=== PATIENT | female | born 1980 | race Caucasian/White ===

== ENCOUNTER 2024-12-04 01:12 | Inpatient (IN) | payer MEDICAID ==
[~2024-12-04] VITALS: Ht 152.4 cm; Wt 73.0 kg
[2024-12-04] VITALS (7 sets, daily range): BP systolic 97–119; BP diastolic 42–55; PULSE 64–71; RESP 16–18; TEMP 97.6–97.9; O2SAT 98–99
--- NOTE | 2024-12-04 02:00 | RADIOLOGY REPORT ---
CHEST RADIOGRAPH Indication: Weakness Technique: 1 view Comparison: None FINDINGS: Lines and Tubes: None Lungs/Pleura: Diffuse [id number]-left interstitial opacities. No evidence of pleural abnormality or focal consolidation. Cardiomediastinum: Unremarkable. Other: No acute osseous abnormality. IMPRESSION: 1. Right worse than left interstitial opacities suggesting edema or atypical infection.
--- NOTE | 2024-12-04 02:04 | Physician Documentation ---
History of Present Illness General Chief Complaint: See Chief Complaint Stated Complaint: MULTIPLE COMPLAINTS Time Seen by MD: 01:15 History of Present Illness Initial Comments History, review of systems, physical examination are limited secondary to patient's clinical condition. This is a 44-year-old female transferred to us from [facility] for higher level of care and GI consultation. She has a known history of liver disease. She is a 11 month sober from alcoholic consumption. She is currently on a t ransplant list. She has a known history of end-stage liver disease, congestive heart failure, hypotension, previous polysubstance use, previous alcohol abuse, but presented for evaluation of dyspnea and lightheadedness. She recently has been treated for a GI bleed secondary to variceal bleed, she was banded at a [facility] and subsequently discharged. Today she reports intermittent blood in stool, reports generalized weakness, nausea. She is also confused according to outside facility. At the outside facility she also reported a various pains, syncope, head strike, neck pain, low back pain, and right foot pain. At the time of my examination she complains of feeling confused and reports generalized pain and aches and weakness. Record reviewed. Her blood pressure at the outside facility was borderline at 1 0 6/50, had several episodes of hypotension. She is slightly tachypneic but did not require supplemental oxygen. She was noted to be markedly anemic on presentation with a hemoglobin of 5.9. She received transfusion of 2 units. She is also leukopenic with a white count of 0.7. She had 3-5% bands. Her ANC is 0.34. Platelets are decreased at 39. Her INR is 1.8. Tox screen was not negative. UA is nondiagnostic for UTI. Her metabolic panel shows normal sodium. Creatinine slightly elevated 1.18. Albumin is low at 1.8. Ammonia is elevated at 76. CK was normal. She had imaging of C-spine which showed no acute fracture. She had CT of her head and lumbar spine. CT head shows no acute hemorrhage. CT L-spine shows no acute fracture. X-ray of the right foot shows no fracture. Portable chest x- ray shows no acute cardiopulmonary disease. Medication Reconciliation Allergies: Coded Allergies: No Known Allergies (Unverified , 12/04/24) Review of Systems ROS Limited as above Physical Exam Physical Exam Vital Signs: Temperature: 99.2, Source: Oral, Heart Rate: 70, Respiratory Rate: 15, BP: 95/50, Pulse Oximetry: 95, Weight: 73.000 Physical Exam GENERAL: Awake, confused, no apparent distress, non-toxic appearing, answers questions to the best of her ability but in the limited fashion, follows commands appropriately. Examined immediately upon arrival in bed 10. HEENT: Atraumatic, normocephalic, pupils equal, extraocular muscles intact, sclerae anicteric, mucus membranes moist, oropharynx is clear, no stridor. NECK: supple, full active range of motion, trachea midline, no thyromegaly, no lymphadenopathy, no JVD. CARDIOVASCULAR: regular rate/rhythm, no murmurs/gallops/rubs, Pulses are 2+ in all extremities and symmetric. Capillary refill less than 2 seconds. PULMONARY: Nonlabored, good air movement ,no respiratory distress, speaking in full sentences, clear to auscultation bilaterally, no wheezing, no ronchi, no ra les, no accessory muscle use. GASTROINTESTINAL: Soft, non-tender, non-distended, normal active bowel sounds, no organomegaly, no pulsatile masses, no CVA tenderness. NEUROLOGIC: Lucid with normal mental status. Normal facial symmetry. Moves all extremities symmetrically and with purpose. No truncal ataxia. Speech is fluid without evidence of dysarthria or aphasia, no focal deficits appreciated. MUSCULOSKELETAL: There is full range of motion of all extremities. There is no joint pain or joint swelling or joint erythema. There is no muscle pain or tenderness or swelling. EXTREMITIES: warm, well-perfused, no cyanosis, no clubbing, no edema, no acute deformities. Skin: warm, dry, no rashes or lesions, no jaundice, no petechiae orpurpura. No ecchymosis. PSYCHIATRIC: Unable to reliably assess Progress Results/Orders Results/Orders Orders - JEROD GRECO DO Electrocardiogram (12/04/24 01:19) Cbc/Diff (12/04/24 01:19) Culture Blood (12/04/24 01:19) Chest,Single View (12/04/24 01:19) Monitor (12/04/24 01:19) Saline Lock (12/04/24:19) Hs Troponin I W Calculations (9/13/25 01:19) Hs Troponin I W Calculations (12/04/24 03:19) Straight Cath For Urine Sample (12/04/24 01:19) Man Diff (12/04/24 01:56) Pathology Review (12/04/24 01:56) Completed Orders - JEROD GRECO DO Type And Screen (12/04/24 01:19) Lipase (12/04/24 01:19) Pt Inr (12/04/24 01:19) PTT (12/04/24 01:19) Chest,Single View (12/04/24 01:19) PBNP (12/04/24 01:19) MG (12/04/24 01:19) Normal Saline 1000ml (0.9% Sodium Chlori (12/04/24 01:20) CMP (12/04/24 01:19) Lacticsepsis (12/04/24 01:19) Ammonia (12/04/24 01:19) Calcium Gluc 1gm/50ml Nacl,Iso (Calcium (12/04/24 01:20) Piperacillin/Tazo 4.5gm/100ml (Zosyn 4.5 (12/04/24 02:05) Ua W/Microscopic, Cult If Ind (12/04/24 02:50) Piperacillin/Tazo 4.5gm/100ml (Zosyn 4.5 (12/04/24 03:21) Medications Received in ER Medications (Trade) Dose Ordered Sig/Evon Route PRN Reason Start Time Stop Time Status Last Admin Dose Admin (0.9% sodium chloride (NS) 1000ml IV soln) 500 ml ONCE ONCE IVB 12/04/24 01:20 12/04/24 01:27 DC 12/04/24 02:13 500 ML Calcium Gluconate 50 ml @ 50 mls/hr ONCE ONCE IV 12/04/24 01:20 12/04/24 02:19 DC 12/04/24 02:08 50 MLS/HR Piperacillin/ Tazobactam/ Dextrose 100 ml @ 100 mls/hr ONCE ONCE IV 12/04/24 02:05 12/04/24 03:04 DC 12/04/24 03:32 100 MLS/HR Vital Signs 12/04/24 12/04/24 12/04/24 01:15 02:58 04:22 Temp 99.2 Pulse 70 62 Resp 15 18 16 B/P (MAP) 95/50 101/49 (66) Pulse Ox 95 95 Laboratory Tests Test 12/04/24 01:56 12/04/24 02:50 White Blood Count 0.9 *L Red Blood Count 2.81 L Hemoglobin 7.8 L Hematocrit 24.0 L Mean Corpuscular Volume 85.2 Mean Corpuscular Hemoglobin 27.9 Mean Corpuscular Hemoglobin Concent 32.7 L Red Cell Distribution Width 18.8 H Platelet Count 31 *L Mean Platelet Volume 9.0 Neutrophils (%) (Auto) 64.1 Lymphocytes (%) (Auto) 23.0 Monocytes (%) (Auto) 11.7 Eosinophils (%) (Auto) 0.8 Basophils (%) (Auto) 0.4 Neutrophils # (Auto) 0.6 L Lymphocytes # (Auto) 0.2 L Monocytes # (Auto) 0.1 Eosinophils # (Auto) 0.0 Basophils # (Auto) 0.0 CBC Comment Differential Total Cells Counted 100 Neutrophils % (Manual) 62.0 Lymphocytes % (Manual) 26.0 Monocytes % (Manual) 12.0 Platelet Estimate Decreased Red Blood Cell Morphology Perf Hypochromasia 1+ Basophilic Stippling Anisocytosis 2+ Microcytosis 1+ Prothrombin Time 14.6 H INR International Normalized Ratio 1.5 Activated Partial Thromboplast Time 31 Coagulation Comments Sodium Level 138 Potassium Level 4.9 Chloride Level 106 Carbon Dioxide Level 28.1 Anion Gap 4 L Blood Urea Nitrogen 21 H Creatinine 1.15 H Estimated GFR/1.73 m2 51 BUN/Creatinine Ratio 18.3 Glucose Level 100 Lactic Acid Level 1.2 Calcium Level 8.2 L Magnesium Level 1.7 Total Bilirubin 4.1 H Aspartate Amino Transf (AST/SGOT) 38 H Alanine Aminotransferase (ALT/SGPT) 9 L Alkaline Phosphatase 135 H Ammonia 112 *H Pro-B-Type Natriuretic Peptide 581 H Total Protein 6.2 L Albumin 1.9 L Globulin 4.3 Albumin/Globulin Ratio 0.4 L Lipase 52 Chemistry Comments Urine Specimen Description Non-specified Urine Color Yellow Urine Clarity Clear Urine pH 7.0 Urine Specific [place] <=1.005 Urine Protein Negative Urine Glucose (UA) Negative Urine Ketones Negative Urine Occult Blood Small Urine Nitrite Negative Urine Bilirubin Negative Urine Urobilinogen 2.0 H Urine Leukocyte Esterase Negative Urine RBC 3-10 Urine WBC None seen Urine Squamous Epithelial Cells Few Urine Bacteria Few Urine Culture Indicated Not ind Volume Urine Centrifuged 10 ml Urine Comment Microbiology Date/Time Source Procedure Growth Status 12/04/24 01:56 Blood Hand Right Blood Culture - Preliminary NEGATIVE (LESS THAN 24 HOURS) Resulted Medical Decision Making Findings Facility Status: ED Holds, RME process The plan was discussed with the patient, who demonstrates clear understanding of the plan and is in agreement with the plan unless otherwise noted in the chart. All questions have been answered, all concerns were addressed unless otherwise documented. I was available throughout their ED stay for frequent reassessment and questions. Differential Diagnoses (considered and possible or likely): [Upper GI bleed versus lower GI bleed versus variceal bleed, critical anemia requiring transfusion, hepatic encephalopathy, less likely dehydration electrolyte derangement] ??Differential Diagnoses (considered and unlikely, not requiring evaluation currently): [Trauma was already ruled out of the outside facility] MDM Data Please see [facility] for the following: Independent Historians and external Records Review. Historian: Limited information from patient secondary to her clinical condition Independent Historians: ?[Record review] Medication Management: [Reviewed medication list] Social History and determinants: [Reviewed] Please see the body of the note for the following: Any independent interpretations of ECG, imaging studies. All vitals signs/haemodynamics, ordered tests were independently reviewed and interpreted by myself. Nursing triage complaint and vitals reviewed, additional nursing notes were reviewed as available and I agree unless otherwise noted or documented in contradiction in the chart Vital Signs: Independently reviewed Labs: Independently interpreted Imaging: Independently interpreted Old Medical Records: Independently reviewed, see [facility] for relevant summary and information Pulse Oximetry: [96%] interpreted as [normal on room air] by me [Loading Shovel Oiler: [Regular Rate, Regular rhythm, no ectopy, NSR] reviewed and interpreted by me] Additionally notably showing: [Hemodynamics reviewed. The patient isn't febrile, not tachycardic, no evidence of hypotension here, blood pressure actually improved with fluids. Laboratory studies reviewed. A persistent leukopenia noted. Thrombocytopenia noted. Anemia present, currently not requiring transfusion. No significant neutrophilic predominance. Coagulation panel shows improving the INR to 1.5. Chemistry is notable for stable kidney disease. Ammonia is elevated at 112. BNP is elevated also concerning for some hepatic congestion and CHF. Lipase is normal. UA is nondiagnostic for UTI.] Tests considered but not ordered include: [] Social Determinants of Health Impact: Patient was evaluated in [facility], or [facility] [place] to healthcare due to below par ratio of patient to medical providers. [] Comorbid Conditions Impacting Present Evaluation and Care/Treatment: [Multiple, see list] Management Discussions with other Healthcare Providers: [Hospitalist regarding admission] Treatment and Disposition Medication Management (Given or considered): []. See EMR for details Consideration for Hospitalization/Escalation/Deescalation of Care: Admission for observation has been considered, and appears to be necessary for further management of her altered mental status, GI bleed. ?ED Course:?[No clinical deterioration. No evidence of hematemesis here. Does not require pressors.] ?Shared decision making:?[] Code status:?FULL Please see the full Electronic Medical Record for full details of nursing documentation, medications list, other records of complete past medical history and conditions, vital signs, laboratory studies, and any radiologic study interpretations by radiologists. Portions of this note were completed using [employer] dictation software and as a result there may exist minor errors in spelling. I have reviewed elements of past family and social history and agree as included in note. Departure Disposition: 09 ADMITTED INPATIENT Impression: Primary Impression: Gastrointestinal bleed Additional Impressions: Anemia requiring transfusions Acute kidney injury Leukopenia Thrombocytopenia Transient hypotension Condition: Improved Referrals: NO PRIMARY CARE PROVIDER (PCP) Signature Scribe Signature: No scribe Attestation: Date: Dec 04, 2024 Time: 02:06 This note accurately reflects clinical decisions, work performed by myself, Jerod Greco, JEROD ORTEGA DO Dec 04, 2024 02:04
[2024-12-04] MEDS: CALCIUM GLUC 1gm/50ml NACL,iso 50 ML IV ONE (02:08)
[2024-12-04] MEDS: normal saline 1000ML IV soln IVB ONE (02:13)
[2024-12-04 02:25] LABS: APTT 31 SECONDS (22-32); INR 1.5 INR
[2024-12-04 02:27] LABS: CREATININE 1.15 MG/DL (0.40-0.90); TOTAL CARBON DIOXIDE 28.1 MMOL/L (24-32); eCRCL 47 ML/MIN; eGFR 51 ML/MIN
[2024-12-04 02:32] LABS: LACTIC SEPSIS 1.2 MMOL/L (0.4-2.0)
[2024-12-04 02:33] LABS: PRO BRAIN NATRIURETIC PEPTIDE 581 PG/ML (0-125)
[2024-12-04 02:36] LABS: MEAN PLATELET VOLUME 9.0 FL (7.4-10.4); RED CELL DISTRIBUTION WIDTH 18.8 % (11.5-14.5)
[2024-12-04 03:00] LABS: LEUKOCYTE ESTERASE ,URINE NEGATIVE (Neg); NITRITES, URINE NEGATIVE (Neg); OCCULT BLOOD,URINE SMALL (Neg)
[2024-12-04 03:10] LABS: LYMPHOCYTES % (MANUAL) 26.0 % (21-51); MONOCYTES % (MANUAL) 12.0 % (2-12); NEUTROPHILS % (MANUAL) 62.0 % (42-75); PLATELET ESTIMATE DECREASED
[2024-12-04 03:12] LABS: UA COLLECTION TYPE NON-SPECIFIED
[2024-12-04 03:30] LABS: SQUAMOUS EPITHELIAL CELL,UR FEW /LPF (FEW)
[2024-12-04] MEDS: piperacillin/tazo 4.5gm/100ml 100 ML IV ONE ×2 (03:32→03:35)
[2024-12-04] MEDS ORDERED: magnesium Cl slow-release 64mg tablet PO PRN (05:25)
[2024-12-04] MEDS ORDERED: potassium Cl 40MEQ/1/2NS 520ml 520 ML IV PRN (05:25)
[2024-12-04] MEDS ORDERED: magnesium sulf-water 4G/100mL 100 ML IV PRN (05:25)
[2024-12-04] MEDS ORDERED: mag hydrox/Alum hydrox/simeth 30ml oral suspension PO PRN (05:25)
[2024-12-04] MEDS ORDERED: magnesium sulf-water 2g/50mL 50 ML IV PRN (05:25)
[2024-12-04] MEDS: PERFLUTREN PROTEIN-A MICROSPHR (Optison) 0.22 MG/ML 3ML VIAL IV ONE (05:25)
[2024-12-04] MEDS ORDERED: potassium Cl 20 mEq SR tablet PO PRN ×2 (05:25)
[2024-12-04] MEDS ORDERED: magnesium hydroxide 30ml (MOM) UD suspension PO PRN (05:25)
[2024-12-04] MEDS: ondansetron/PF 4mg/2ml inj IM ONE (05:31)
[2024-12-04] MEDS: ondansetron/PF 4mg/2ml inj IV ONE (05:35)
--- NOTE | 2024-12-04 06:08 | HISTORY AND PHYSICAL-Residence ---
History & Physical Providers to CC Resident Creating Document: LETTY WALDROP, RES ~ History of Present Illness Reason for Admit\Complaint: GI bleed History of Present Illness The patient is a 44-year-old female with past medical history of end-stage liver disease on liver transplant list, hypertension, congestive heart failure, history of polysubstance use, was transferred from [facility] for the management of GI bleed. The patient is encephalopathic and has waxing and waning mentation. History is thus limited. Patient recently was treated for GI bleed with banding at [facility]. She now comes with dyspnea and lightheadedness. She has also found blood in her stool. Unsure about hematemesis. She also fell multiple times and found herself confused. She has generalized body aches. Patient reported compliance with all of her medications. Patient also complains of abdominal pain. She has ascites and undergoes paracentesis periodically. Patient has been sober for the last one year. Allergies: Coded Allergies: No Known Allergies (Unverified , 12/04/24) Past Medical History Past Medical History End-stage liver disease secondary to alcoholic cirrhosis Pancytopenia Ascites Hepatitis-C History of substance use disorder PTSD CHF Past Surgical History Surgical History Comment Variceal banding at [facility] Past Social History Social History Comment Patient lives with her mother at [place]. Ambulates independently without assistance. PCP - Dr. 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 Does not follow up with any other specialists. Substance use history: Patient was a heavy alcoholic. Started drinking after her father killed himself during her teenage years. Quit one year ago. Quit smoking one year ago. Vapes currently. History of IV drug abuse present including methamphetamines, cocaine, heroin. Quit everything almost six years ago. ROS ROS Review of systems limited as the patient is encephalopathic. Exam Vitals: Vital Signs Date Time Temp Pulse Resp B/P (MAP) Pulse Ox O2 Delivery O2 Flow Rate FiO2 12/04/24 05:38 98.9 59 12 99/45 (63) 96 General: Adult female, waxing and waning mentation, not in acute distress Head: Normocephalic with an atraumatic Eyes: Pupils- 3mm, reacting to light, conjunctiva- pale Nose and throat: No polyps, septum- normal, no mucosal ulcers, dry mucosal membrane Neck: Supple, no lymphadenopathy, no carotid bruit Respiratory: No use of accessory muscles of respiration, Bilateral coarse breath sounds heard Cardiac: S1-S2 heard, rhythm regular, no gallop/murmur Abdomen: distended, diffuse tenderness present, bowel sounds - heard Extremities: no clubbing, no pedal edema, no deformities, peripheral pulses - 2+ Skin: warm and dry, no rash, no purpura Neuro: Not cooperative for neurological exam Diagnostic Data Last Recorded Lab Results: 12/04/246 12/04/24 0156 Diagnostic Data: Laboratory Tests Test 12/04/24 01:56 Prothrombin Time 14.6 SECONDS (9.0-12.0) H INR International Normalized Ratio 1.5 INR Activated Partial Thromboplast Time 31 SECONDS (22-32) Coagulation Comments Advance Care Planning Advanced Care plannin - 30 Minutes (Full code) Additional Plan The patient is a 44-year-old female with past medical history of end-stage renal disease on liver transplant list, history of heavy alcohol use, history of substance use disorder including IV drugs, pancytopenia, CHF, was transferred from [facility] for the management of GI bleed. Plan: Decompensated alcoholic liver cirrhosis Acute on chronic hepatic encephalopathy Upper GI bleed secondary to esophageal varices Severe symptomatic anemia Total bilirubin 4.1, AST 38, ALT nine, ALP 135. Platelets 59617. INR 1.5. Albumin 1.9. Ammonia 112. HB at the other hospital was 5.9. Patient received 2 units of PRBC at the other hospital. Current hemoglobin 7.8. Patient recently underwent variceal banding at [facility]. GI on-call, Dr. Rosales consulted. Appreciate recommendations. Started the patient on pantoprazole drip, octreotide drip, lactulose t.i.d. to titrate 3-4 bowel movements per day. Continue rifaximin after medication reconciliation is done. Patient is currently on liver transplant list. Follow up with faculty dean outpatient. Pancytopenia Neutropenia WBC 0.9, HB 7.8, platelets [id number]. Currently not febrile. Although, patient reported few subjective fevers over the past few weeks. Tender ascites Possible spontaneous bacterial peritonitis Patient clinically has ascites. Follow up with [facility] abdomen. Empirically started her on IV ceftriaxone 2 g daily. Diagnostic and therapeutic paracentesis. Multiple mechanical falls CT C-spine showed no acute fractures. CT head showed no acute intracranial abnormalities. X-ray right foot showed no acute fractures. X-ray lumbar spine showed no acute abnormality. Patient complains of generalized body aches. Follow up with creatinine kinase. Consider IV albumin if patient needs fluids. Acute hypoxemic respiratory failure Possible aspiration pneumonia X-ray shows right worse than left interstitial opacities. Started the patient on IV ceftriaxone and azithromycin. History of substance use disorder Currently sober. Congestive heart failure, likely not in exacerbation Follow up with the echocardiogram. ProBNP in 500s. PTSD Continue home medications after medication reconciliation is done. Code Status: Full code DVT Prophylaxis: SCDs Analgesia/Sedation: Morphine Lines/Tubes: PIV GI Prophylaxis: Protonix Nutrition: NPO PT: Ordered Prognosis: Guarded Disposition: We will admit the patient into [facility]. NPO for possible endoscopy. Agree with above. WOuld change abx to vanco/zosyn and obtain doppler RLE as well Plan reviewed with bedside team. Patient seen through remote audiovisual assessment through HIPAA compliant setup. All labs, flowsheets, and images reviewed Cumulative nonprocedural care time spent in directed patient care = 30 min Letty Waldrop MD Internal Medicine Resident PGY-2 Date of Service: Dec 04, 2024 Billing Provider: NERY ADAMS MD, SOWMYA MANJARI, RES Dec 04, 2024 06:08 NERY ADAMS MD Dec 04, 2024 07:11
[2024-12-04] MEDS ORDERED: BUPR1FIL7 SL (06:34)
[2024-12-04] MEDS ORDERED: LEVO88TA2 PO (06:34)
[2024-12-04] MEDS ORDERED: SPIR25TA5 PO (06:34)
[2024-12-04] MEDS ORDERED: RIFA200T2 PO (06:34)
[2024-12-04] MEDS ORDERED: FURO-150 PO (06:34)
[2024-12-04] MEDS ORDERED: MULT-1085 PO (06:34)
[2024-12-04] MEDS ORDERED: ESCI10TA PO (06:34)
[2024-12-04] MEDS ORDERED: FOLI0.4T6 PO (06:34)
[2024-12-04] MEDS ORDERED: azithromycin/NS 500mg/250ml 250 ML IV SCH (06:45)
[2024-12-04] MEDS ORDERED: CefTRIAXone 2gm/D5W 50ml BAG 50 ML IV SCH (06:45)
[2024-12-04] MEDS ORDERED: piperacillin/tazo 4.5gm/100ml 100 ML IV SCH (07:20)
[2024-12-04] MEDS: K and/or MAG REPLACEMENT MC SCH (08:00)
[2024-12-04] MEDS: octreotide inj. 500 MCG in normal saline 100ml IV soln 97.5 ML IV SCH (08:03)
[2024-12-04] MEDS: vancomycin/NS 1 GM ADD-VANTAGE 250 ML IV SCH (08:04)
[2024-12-04] MEDS: docusate sod 100mg capsule PO SCH (08:15)
[2024-12-04] MEDS: lactulose 20gm/30ml cup PO SCH (08:15)
--- NOTE | 2024-12-04 08:15 | RADIOLOGY REPORT ---
CLINICAL INFORMATION: 44 years old, Female; ascites. TECHNIQUE: Grayscale sonographic imaging of the right upper quadrant of the abdomen was performed, assisted by color Doppler techniques. COMPARISON: None FINDINGS: The gallbladder is surgically absent. The common bile duct measures 2.7 mm in diameter, within normal limits. Nodular contour of the liver, may be seen with cirrhosis in the appropriate clinical setting. Increased echogenicity of the liver suggesting with fatty infiltration. There is small volume ascites adjacent to the liver. The pancreas is obscured by bowel gas. The right kidney measures 9.9 cm. There is no hydronephrosis. Increased echogenicity of the right kidney. Cortical thickness is within the range of normal. IMPRESSION: 1. Cirrhotic liver morphology with small volume ascites. Correlate with clinical findings. 2. Increased echogenicity of the right kidney, may be seen with nonspecific medical renal disease. 3. Gallbladder is surgically absent. Pancreas is obscured by bowel gas. No biliary ductal dilatation.
[2024-12-04] MEDS: piperacillin/tazo 4.5gm/100ml 100 ML IV SCH ×2 (09:10→23:55)
[2024-12-04 10:44] LABS: LEUKOCYTE ESTERASE ,URINE NEGATIVE (Neg); NITRITES, URINE NEGATIVE (Neg); OCCULT BLOOD,URINE SMALL (Neg)
[2024-12-04 10:48] LABS: UA COLLECTION TYPE VOIDED
[2024-12-04 10:49] LABS: MUCUS STRANDS FEW /LPF (Neg); SQUAMOUS EPITHELIAL CELL,UR FEW /LPF (FEW)
--- NOTE | 2024-12-04 11:12 | VASCULAR REPORT ---
RIGHT LOWER EXTREMITY VENOUS DUPLEX REASON FOR EXAMINATION: RIGHT LOWER EXTREMITY PAIN AND EDEMA COMPARISON: None TECHNIQUE: Using real-time freeze-frame technique with a high-frequency transducer, multiple longitudinal and transverse sections were obtained. Simultaneous color flow and spectral Doppler imaging was performed. FINDINGS: There is good visualization of the deep venous system with no intraluminal filling defects identified. Normal venous compressibility is seen and there is flow augmentation. Color flow Doppler imaging is unremarkable. IMPRESSION: NO EVIDENCE OF DEEP VENOUS THROMBOSIS.
[2024-12-04] MEDS: ondansetron/PF 4mg/2ml inj IV PRN (11:25)
[2024-12-04] MEDS: pantoprazole 40MG/NS 100ML BAG 100 ML IV SCH (11:25)
--- NOTE | 2024-12-04 13:00 | ELECTROCARDIOGRAPH REPORT ---
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 Tigre Bhatt Measurements Intervals [place] Rate: 73 P: 68 NE: 171 QRS: 21 QRSD: 98 T: 58 QT: 438 QTc: 483 Interpretive Statements Sinus rhythm Abnormal R-wave progression, early transition Electronically Signed On 12-08-2024 19:22:[address] Tigre Bhatt Please click the below link to view image of tracing.
--- NOTE | 2024-12-04 18:51 | PROGRESS NOTE ---
Daily Progress Note Providers to CC ~ Antibiotic Timeout Antibiotic Ordered?: Yes Subjective Patient was seen in ER bed 10. Today. Patient was feeling pain all over her body , patient was started on clear liquid diet yesterday night she wants to know when we will advance her diet. Denied any nausea vomiting. As per patient she is in liver transplant list in trying to get the appointment with the specialist doctors. Her last drink of alcohol was in January 2024. She is feeling weak and having difficulty in walking. Objective Vital Signs Date Time Temp Pulse Resp B/P (MAP) Pulse Ox O2 Delivery O2 Flow Rate FiO2 12/04/24 16:40 16 12/04/24 16:18 Room Air 12/04/24 15:54 64 12/04/24 12:30 107/50 (69) 98 0 12/04/24 09:53 97.9 Result Diagram: 12/04/24 0156 12/04/24 0156 General-patient not in any acute distress, alert awake chronically ill- appearing HEENT-atraumatic normocephalic, neck supple without elevated JVD, no thyromegaly or carotid bruit. No lymphadenopathy bilaterally. Eyes-no icterus or pallor seen in eyes Chest-clear to auscultation bilaterally, breathing nonlabored no tachypnea, no wheezing, no crepitation, no crackles. Heart-S1-S2 normal, regular heart rate no murmur Abdomen bowel sounds positive on auscultation, soft appear distended , signs of subjective tenderness present over abdomen on palpation, no signs of acute peritonitis, no guarding, no rigidity Skin no active skin rash Neurology-grossly intact, nonfocal alert awake oriented Extremity- no pedal edema able to move all 4 extremities Psychiatry - patient is not confused or agitated cooperated during physical examination Coagulation Studies Laboratory Tests Test 12/04/24 01:56 Prothrombin Time 14.6 SECONDS (9.0-12.0) H INR International Normalized Ratio 1.5 INR Activated Partial Thromboplast Time 31 SECONDS (22-32) Coagulation Comments Problem\Assessment\Plan The patient is a 44-year-old female with past medical history of end-stage renal disease on liver transplant list, history of heavy alcohol use, history of substance use disorder including IV drugs, pancytopenia, CHF, was transferred from [facility] for the management of GI bleed. Plan: Decompensated alcoholic liver cirrhosis Acute on chronic hepatic encephalopathy Upper GI bleed secondary to esophageal varices Severe symptomatic anemia Total bilirubin 4.1, AST 38, ALT nine, ALP 135. Platelets 77741. INR 1.5. Albumin 1.9. Ammonia 112. HB at the other hospital was 5.9. Patient received 2 units of PRBC at the other hospital. Current hemoglobin 7.8. Patient recently underwent variceal banding at [facility]. GI on-call, Dr. Rosales consulted. GI consultation pending Started the patient on pantoprazole drip, octreotide drip, lactulose t.i.d. to titrate 3-4 bowel movements per day. will Continue rifaximin Patient is currently on liver transplant list. Follow up with putty and patch worker outpatient. Pancytopenia Neutropenia WBC 0.9, HB 7.8, platelets [id number]. Currently not febrile. Although, patient reported few subjective fevers over the past few weeks. Possible spontaneous bacterial peritonitis , ascites Patient clinically has ascites. Follow up with [facility] abdomen. Empirically started her on IV zosyn We will talk to hollow core door frame assembler in a.m. for Diagnostic and therapeutic paracentesis. Patient is afebrile normal procalcitonin, blood cultures so far unremarkable Multiple mechanical falls CT C-spine showed no acute fractures. CT head showed no acute intracranial abnormalities. X-ray right foot showed no acute fractures. X-ray lumbar spine showed no acute abnormality. Patient complains of generalized body aches. creatinine kinase 38 normal Acute hypoxemic respiratory failure Possible aspiration pneumonia X-ray shows right worse than left interstitial opacities. Started the patient on IV ceftriaxone and azithromycin. History of substance use disorder Currently sober. Congestive heart failure, likely not in exacerbation will follow up with the echocardiogram. ProBNP in 500s. PTSD Continue home medications after medication reconciliation is done. Code Status: Full code DVT Prophylaxis: SCDs Analgesia/Sedation: Morphine Lines/Tubes: PIV GI Prophylaxis: Protonix Nutrition: NPO PT: Ordered Patient's long-term prognosis poor current condition guarded I will follow patient in a.m.. Date of Service: Dec 04, 2024 Billing Provider: CLIVE MALDONADO MD Common Visit Codes: [id number] INP/OBS CARE(HIGH) CLIVE MALDONADO MD Dec 04, 2024 18:51
--- NOTE | 2024-12-04 23:26 | CONSULTATION ---
DATE OF CONSULTATION: 12/04/2024 DICTATING PHYSICIAN: Paulo Walsh MD REASON FOR CONSULTATION: Hepatic encephalopathy and GI bleed. HISTORY OF PRESENT ILLNESS: The patient is 44 years old, has a history of end-stage liver disease due to alcohol intake, sober for the past year, requested for a transplant list, also has history of polysubstance use, hypertension, congestive heart failure, apparently transferred from [facility]. The patient came in because she noticed change in mental change she says that she has had this before and she recognized encephalopathic features. She also had 2 episodes of fall. She has had a bowel movement yesterday. She has a history of GI bleeding and variceal bleeding, variceal band ligation has been performed. She says she had mild episode of hematemesis. Her main complaint however is altered mental status. She had hemoglobin of 7.8, hematocrit of 24.0, MCV was 85, platelet count was 31. Chemistries showed alkaline phosphatase of 135. I do not have an ammonia level on her. PAST MEDICAL HISTORY: As above. FAMILY HISTORY: Noncontributory. PERSONAL HISTORY: Noncontributory. REVIEW OF SYSTEMS: A 12-point review of system is essentially same as history of present illness. PHYSICAL EXAMINATION: GENERAL: She is awake, arousable, alert, oriented, appears to be in no apparent distress, mild tremors but no definite asterixis. VITAL SIGNS: Otherwise normal. NECK: Supple. HEART: Normal. LUNGS: Normal. ABDOMEN: Soft, nontender. No masses. No organomegaly. Bowel sounds are present. IMPRESSION: The patient with end-stage liver disease, appears to have come in because of encephalopathy, appears also has had small GI bleed, which is not very significant at this time, hemoglobin however is low. RECOMMENDATIONS: * Continue current management. Monitor mental status. * Start her on lactulose to aim for 2-3 bowel movements although even if it is diarrhea per day until the mental states are changes. Obtain ammonia level. * We will monitor for ongoing GI bleeding and plan an endoscopy, discontinue bleeding. When she is more stable, she will need an elective endoscopy also to evaluate for varices and to determine if there is need for more sittings of variceal banding or ____ of the varices. Beta remberto therapy is recommended for secondary prophylaxis as well. Discussed with the resident. Paulo Walsh MD TID: [id number] RECEIPT: [id number] CURT/JUSTIN/JOSE
[2024-12-05] VITALS (30 sets, daily range): BP systolic 98–140; BP diastolic 36–97; PULSE 56–94; RESP 11–18; TEMP 96–98.5; O2SAT 92–100
[2024-12-05] MEDS: diphenhydrAMINE 25 MG/10 ML UD oral solution PO ONE (00:24)
[2024-12-05 07:04] LABS: MEAN PLATELET VOLUME 8.9 FL (7.4-10.4); RED CELL DISTRIBUTION WIDTH 19.2 % (11.5-14.5)
[2024-12-05 08:46] LABS: EOSINOPHILS % (MANUAL) 2.0 % (0-6); LYMPHOCYTES % (MANUAL) 38.0 % (21-51); MONOCYTES % (MANUAL) 6.0 % (2-12); NEUTROPHILS % (MANUAL) 48.0 % (42-75); PLATELET ESTIMATE DECREASED; REACTIVE LYMPHOCYTES % 6.0 % (0-0)
[2024-12-05 09:12] LABS: CREATININE 1.44 MG/DL (0.40-0.90); TOTAL CARBON DIOXIDE 25.4 MMOL/L (24-32); eCRCL 36 ML/MIN; eGFR 40 ML/MIN
[2024-12-05] MEDS ORDERED: fentaNYL/PF 50MCG/1 ML 2ML syringe ONE (09:37)
[2024-12-05] MEDS ORDERED: LIDOcaine 2% Viscous 15ml cup ONE (09:37)
[2024-12-05] MEDS ORDERED: MIDAZolam 1 MG/ML 5ML VIAL ONE (09:37)
--- NOTE | 2024-12-05 18:19 | CARDIOLOGY REPORT ---
APPROVED REPORT EXAM: Comprehensive 2D, Doppler, and color-flow Echocardiogram. Patient Location: 3009 A Heart Rate: 50's bpm Rhythm: SINUS BRADYCARDIA Indications CONGESTIVE HEART FAILURE PBNP 551 ETOH LIVER FAILURE IV DRUG ABUSE Roller Engraver: NONE Previous echo: NONE 2D Dimensions RVDd 4.0 cm LA Diam 4.7 cm IVSd 0.8 (0.7-1.1cm) LVDd 5.3 cm PWd 0.8 (0.7-1.1cm) IVSs 1.4 (0.8-1.2cm) LVDs 3.9 (2.5-4.0cm) PWs 1.2 (0.8-1.2cm) LVOT Diameter 1.76 (1.8-2.4cm) LVEF(%) 50.9 (>50%) Ao Asc Diam. 3.12 cm IVC 31.39 mm FS (%) 26.1 % SV 69.0 ml CO 3.9 L/min M-Mode Dimensions Left Atrium(MM) 4.77 (2.5-4.0cm) Aortic Root 2.27 (2.2-3.7cm) Aortic Cusp Exc 1.72 (1.5-2.0cm) Aortic Valve AoV Peak Aaron. 166.4 cm/s AoV VTI 38.5 cm AO Peak GR. 11.1 mmHg AO Mean GR. 6 mmHg LVOT VTI 35.69 cm LVOT Peak Aaron. 141.5 cm/s MOUNA(VTI)/BSA 2.25 cm2/m2 MOUNA (VTI) 2.25 cm2 Mitral Valve MV E Velocity 115.4 cm/s MV Peak Gr. 8 mmHg MV DECEL TIME 216 ms MV A Velocity 107.4 cm/s MV PHT 64 ms E/A Ratio 1.1 MVA (PHT) 3.44 cm2 MV VMax 145.4 cm/s TDI Lateral E' P. V 9.12 cm/s E/Lateral E' 12.7 Pulmonary Valve PAEDP 16.09 mmHg Tricuspid Valve TR P. Velocity 298 cm/s RAP ESTIMATE 15 mmHg TR Peak Gr. 35 mmHg RVSP 50 mmHg Pulmonary Vein S1 Velocity 58.7 cm/s D2 Velocity 55.2 cm/s PVa Velocity 22.5 cm/s PVa Duration 120 msec LEFT VENTRICLE Normal LV size and wall thickness. Overall systolic function is mildly reduced. LVEF is 50-55%. RIGHT VENTRICLE RV is mildly dilated with normal function. Elevated right heart pressures with an RVSP of 50 mmHg. ATRIA Left atrium is moderately dilated. AORTIC VALVE Trileaflet AV appears normal without stenosis. No insufficiency. MITRAL VALVE MV appears structurally normal with mild regurgitation. TRICUSPID VALVE TV appears structurally normal with moderate regurgitation. PULMONIC VALVE Normal PV without stenosis, mild insufficiency. GREAT VESSELS The aortic root is normal in size. IVC is dilated and collapses less than 50% with inspiration. PERICARDIUM Normal pericardium. No effusion. Other Information Study Quality: Adequate Conclusion Normal LV size and wall thickness. Overall systolic function is mildly reduced. LVEF is 50-55%. RV is mildly dilated with normal function. Elevated right heart pressures with an RVSP of 50 mmHg. Left atrium is moderately dilated. Trileaflet AV appears normal without stenosis. No insufficiency. MV appears structurally normal with mild regurgitation. TV appears structurally normal with moderate regurgitation. Normal PV without stenosis, mild insufficiency. Normal pericardium. No effusion.
--- NOTE | 2024-12-05 18:43 | PROGRESS NOTE ---
Daily Progress Note Providers to CC ~ Antibiotic Timeout Antibiotic Ordered?: Yes Subjective Patient was seen with nursing staff after she came back from the GI lab she was lethargic not able to provide much history to me. As per nursing staff there was no GI report for EGD available. GI consult note reviewed. Objective Vital Signs Date Time Temp Pulse Resp B/P (MAP) Pulse Ox O2 Delivery O2 Flow Rate FiO2 12/05/24 17:07 98.0 58 14 122/55 (77) 95 Nasal Cannula 12/05/24 14:00 2.0 Result Diagram: 12/05/24 0603 12/05/24 0603 General-patient not in any acute distress, alert awake chronically ill- appearing HEENT-atraumatic normocephalic, neck supple without elevated JVD, no thyromegaly or carotid bruit. No lymphadenopathy bilaterally. Eyes-no icterus or pallor seen in eyes Chest-clear to auscultation bilaterally, breathing nonlabored no tachypnea, no wheezing, no crepitation, no crackles. Heart-S1-S2 normal, regular heart rate no murmur Abdomen bowel sounds positive on auscultation, soft appear distended , signs of subjective tenderness present over abdomen on palpation, no signs of acute peritonitis, no guarding, no rigidity Skin no active skin rash Neurology-grossly intact, nonfocal alert awake oriented Extremity- no pedal edema able to move all 4 extremities Psychiatry - patient is not confused or agitated cooperated during physical examination Coagulation Studies Laboratory Tests Test 12/04/24 01:56 Prothrombin Time 14.6 SECONDS (9.0-12.0) H INR International Normalized Ratio 1.5 INR Activated Partial Thromboplast Time 31 SECONDS (22-32) Coagulation Comments Problem\Assessment\Plan The patient is a 44-year-old female with past medical history of end-stage renal disease on liver transplant list, history of heavy alcohol use, history of substance use disorder including IV drugs, pancytopenia, CHF, was transferred from [facility] for the management of GI bleed. During hospitalization patient was treated for Decompensated alcoholic liver cirrhosis Acute on chronic hepatic encephalopathy Upper GI bleed secondary to esophageal varices Severe symptomatic anemia Total bilirubin 4.1, AST 38, ALT nine, ALP 135. Platelets 85793. INR 1.5. Albumin 1.9. Ammonia 112. HB at the other hospital was 5.9. Patient received 2 units of PRBC at the other hospital. Current hemoglobin 7.8. Patient recently underwent variceal banding at [facility]. GI on-call, Dr. Rosales consulted. GI consultation done and reviewed Started the patient on pantoprazole drip, octreotide drip, lactulose t.i.d. to titrate 3-4 bowel movements per day. will Continue rifaximin Patient is currently on liver transplant list. Follow up with pinion polisher outpatient. Pancytopenia Neutropenia WBC 0.9, HB 7.8, platelets 23100. Currently not febrile. Although, patient reported few subjective fevers over the past few weeks. Possible spontaneous bacterial peritonitis , ascites Patient clinically has ascites. Follow up with [facility] abdomen. Empirically started her on IV zosyn We will talk to biomass facilitator in a.m. for Diagnostic and therapeutic paracentesis. Patient is afebrile normal procalcitonin, blood cultures so far unremarkable Multiple mechanical falls CT C-spine showed no acute fractures. CT head showed no acute intracranial abnormalities. X-ray right foot showed no acute fractures. X-ray lumbar spine showed no acute abnormality. Patient complains of generalized body aches. creatinine kinase 38 normal Acute hypoxemic respiratory failure Possible aspiration pneumonia X-ray shows right worse than left interstitial opacities. Started the patient on IV ceftriaxone and azithromycin. History of substance use disorder Currently sober. Congestive heart failure, likely not in exacerbation will follow up with the echocardiogram. ProBNP in 500s. PTSD Continue home medications after medication reconciliation is done. Code Status: Full code DVT Prophylaxis: SCDs Analgesia/Sedation: Morphine Lines/Tubes: PIV GI Prophylaxis: Protonix Nutrition: NPO PT: Ordered Patient's long-term prognosis poor current condition guarded I will follow patient in a.m..she came back from the GI lab she was lethargic not able to provide much history to me. As per nursing staff there was no GI report for EGD available. GI consult note reviewed. Date of Service: Dec 05, 2024 Billing Provider: CLIVE MALDONADO MD Common Visit Codes: [id number] INP/OBS CARE(HIGH) CLIVE MALDONADO MD Dec 05, 2024 18:42
[2024-12-05] MEDS ORDERED: RIFA550T PO (19:18)
[2024-12-05] MEDS: rifaximin 550mg tablet PO SCH (23:11)
[2024-12-05] MEDS: propranolol 10mg tablet PO SCH (23:11)
[2024-12-06] VITALS (8 sets, daily range): BP systolic 89–114; BP diastolic 38–57; PULSE 55–60; RESP 10–17; TEMP 96.6–98.9; O2SAT 95–99
[2024-12-06 02:12] LABS: CREATININE 1.57 MG/DL (0.40-0.90); TOTAL CARBON DIOXIDE 30.1 MMOL/L (24-32); eCRCL 33 ML/MIN; eGFR 36 ML/MIN
[2024-12-06 02:13] LABS: MEAN PLATELET VOLUME 9.7 FL (7.4-10.4); RED CELL DISTRIBUTION WIDTH 18.4 % (11.5-14.5)
[2024-12-06] MEDS: levoTHYROXINE 88mcg tablet PO SCH (07:52)
[2024-12-06] MEDS: multivitamins, therapeutics tablet PO SCH (07:52)
[2024-12-06] MEDS: ESCITALOPRAM 10 mg tablet 10 MG TABLET PO SCH (07:53)
[2024-12-06 09:59] LABS: % IRON SATURATION 11 % (11-46)
--- NOTE | 2024-12-06 13:16 | PROGRESS NOTE- Residence ---
Progress Note - Resident Providers to CC Resident Creating Document: MARYJO ARMSTRONG RES ~ Antibiotic Timeout Antibiotic Ordered?: Yes Subjective Patient was seen and examined at bedside. Patient was lethargic. Patient reports mild abdominal discomfort. Patient reports that she did not pass stool today. No acute overnight events noted. Objective Vital Signs Date Time Temp Pulse Resp B/P (MAP) Pulse Ox O2 Delivery O2 Flow Rate FiO2 12/06/24 08:00 Room Air 0.0 12/06/24 06:00 58 12/06/24 02:40 98.3 16 100/44 (62) 96 Result Diagram: 12/06/24 0121 12/06/24 0121 Awake , alert and oriented to time,place, person,not in distress, chronically ill-appearing, with tremor of hands. HEENT: Atraumatic, normocephalic, PERRLA, EOMI, anicteric sclera ; pink conjunctiva, moist mucos membranes Neck: Trachea midline. Supple, normal range of motion, no JVD, no lymphadenopathy Chest and Respiratory: Equal breath sounds bilaterally, no tachypnea, wheezing, ronchi,rubs .Chest wall is symmetric and without deformity. Cardiac: S1, S2 heard,Regular rate and rhythm, no murmurs heard. Abdomen: Soft, mild tenderness, No guarding or rigidity, Motta's sign negative. normal bowel sounds x4 quadrant, no hepatosplenomegaly MSK: Range of motion of all extremities are normal. There is no joint pain or joint swelling or joint erythema. There is no muscle pain or tenderness or swelling. Extremities: warm, well-perfused, No cyanosis, clubbing, 2+ pulses felt Neurological: Speech is clear, alert, and oriented x 4. No sensory or motor deficits. Cranial nerves II-XII intact. Skin: Warm and dry Psychiatry: Affect and mood are normal Coagulation Studies Laboratory Tests Test 12/04/24 01:56 Prothrombin Time 14.6 SECONDS (9.0-12.0) H INR International Normalized Ratio 1.5 INR Activated Partial Thromboplast Time 31 SECONDS (22-32) Coagulation Comments Plan Plan Decompensated alcoholic liver cirrhosis Acute on chronic hepatic encephalopathy Mild ascites Upper GI bleed secondary to grade 1 esophageal varices Gastritis Possible spontaneous bacterial peritonitis Severe symptomatic anemia -ultrasound abdomen showed Cirrhotic liver morphology with small volume ascites -Patient recently underwent variceal banding at [facility]. EGD in this hospital revealed minimal esophageal varices. -Patient is currently on liver transplant list. -Follow up with flask cleaner outpatient. -Beta remberto therapy is not recommended in view of low blood pressure. -H&H are stable after 1 unit of PRBC transfusion. -transfuse PRBC if hemoglobin level is less than 7 -Increase dose of lactulose to aim for 2-3 bowel movements per day until the mental states are changes. -Monitor mental status and ammonia levels. -repeat ammonia levels -continue on rifaximin -continue IV Protonix -continue on IV Zosyn 4.5 mg b.i.d. daily -EGD showed: grade 1 esophageal varices gastritis awaiting pathology results Pancytopenia Neutropenia Multiple mechanical falls Possible aspiration pneumonia History of substance use disorder Congestive heart failure, likely not in exacerbation PTSD -plan per hospitalist team recommendation. Code status: Full code DVT prophylaxis : SCDs GI prophylaxis: Protonix Line/tube: PIV Disposition: Patient underwent EGD that showed gastritis and grade 1 esophageal varices. Be Armstrong MD Internal Medicine Resident, PGY 1 Date of Service: Dec 06, 2024 Billing Provider: SAIMA BRIGHT MD, SUNIL KUMAR, RES Dec 06, 2024 13:16 SAIMA BRIGHT MD Dec 06, 2024 16:59
[2024-12-06] MEDS: midodrine tablet 2.5 MG TABLET PO SCH (16:27)
[2024-12-06] MEDS: normal saline 1000ml 1,000 ML IV SCH (16:28)
--- NOTE | 2024-12-06 19:39 | PROGRESS NOTE ---
Daily Progress Note Providers to CC ~ Antibiotic Timeout Antibiotic Ordered?: Yes Subjective PLEASE MINIMIZE THE USE OF MORPHINE AND USE IT VERY CAUTIOUSLY. Patient was seen in her room she was concerned about multiple thing related to nursing which I discussed with the charge nurse and nursing staff on-call. Later they mentioned that patient's blood pressure is low patient is requiring pain medication for generalized pain which we will use cautiously. Started on midodrine physical therapy on hold due to low blood pressure. Objective Vital Signs Date Time Temp Pulse Resp B/P (MAP) Pulse Ox O2 Delivery O2 Flow Rate FiO2 12/06/24 15:00 98.3 59 16 89/38 (55) 95 12/06/24 08:00 Room Air 0.0 Result Diagram: 12/06/24 0121 12/06/24 0121 General-patient not in any acute distress, alert awake chronically ill- appearing HEENT-atraumatic normocephalic, neck supple without elevated JVD, no thyromegaly or carotid bruit. No lymphadenopathy bilaterally. Eyes-no icterus or pallor seen in eyes Chest-clear to auscultation bilaterally, breathing nonlabored no tachypnea, no wheezing, no crepitation, no crackles. Heart-S1-S2 normal, regular heart rate no murmur Abdomen bowel sounds positive on auscultation, soft appear distended , signs of subjective tenderness present over abdomen on palpation, no signs of acute peritonitis, no guarding, no rigidity Skin no active skin rash Neurology-grossly intact, nonfocal alert awake oriented Extremity- no pedal edema able to move all 4 extremities Psychiatry - patient is not confused or agitated cooperated during physical examination Coagulation Studies Laboratory Tests Test 12/04/24 01:56 Prothrombin Time 14.6 SECONDS (9.0-12.0) H INR International Normalized Ratio 1.5 INR Activated Partial Thromboplast Time 31 SECONDS (22-32) Coagulation Comments Problem\Assessment\Plan The patient is a 44-year-old female with past medical history of end-stage renal disease on liver transplant list, history of heavy alcohol use, history of substance use disorder including IV drugs, pancytopenia, CHF, was transferred from [facility] for the management of GI bleed. During hospitalization patient was treated for Decompensated alcoholic liver cirrhosis Acute on chronic hepatic encephalopathy Upper GI bleed secondary to esophageal varices Severe symptomatic anemia Total bilirubin 4.1, AST 38, ALT nine, ALP 135. Platelets 15726. INR 1.5. Albumin 1.9. Ammonia 112. HB at the other hospital was 5.9. Patient received 2 units of PRBC at the other hospital. Current hemoglobin 7.8. Patient recently underwent variceal banding at [facility]. GI on-call, Dr. Rosales consulted. GI consultation done and reviewed patient was on pantoprazole drip, octreotide drip, lactulose t.i.d. to titrate 3-4 bowel movements per day. will Continue rifaximin Patient is currently on liver transplant list , will follow up with dual rate dealer outpatient. EGD done which showed signs of esophageal varices and gastritis. Dr. Blake following the patient. Continue to monitor hemoglobin and hematocrit. Pancytopenia Neutropenia WBC 0.9, HB 7.8, platelets 04495. Currently not febrile. Although, patient reported few subjective fevers over the past few weeks. No clinical signs of spontaneous bacterial peritonitis , has ascites Patient clinically has ascites. Follow up with [facility] abdomen. stopped IV zosyn, continue rifaximin Patient is afebrile normal procalcitonin, blood cultures so far unremarkable Multiple mechanical falls CT C-spine showed no acute fractures. CT head showed no acute intracranial abnormalities. X-ray right foot showed no acute fractures. X-ray lumbar spine showed no acute abnormality. Patient complains of generalized body aches. creatinine kinase 38 normal Acute hypoxemic respiratory failure Possible aspiration pneumonia X-ray shows right worse than left interstitial opacities. Started the patient on IV ceftriaxone and azithromycin. History of substance use disorder Currently sober. Congestive heart failure, likely not in exacerbation will follow up with the echocardiogram. ProBNP in 500s. PTSD Continue home medications after medication reconciliation is done. Code Status: Full code DVT Prophylaxis: SCDs Analgesia/Sedation: Morphine Lines/Tubes: PIV GI Prophylaxis: Protonix Nutrition: NPO PT: Ordered Patient's long-term prognosis poor current condition guarded I will follow patient in a.m.. Date of Service: Dec 06, 2024 Billing Provider: CLIVE MALDONADO MD Common Visit Codes: [id number] INP/OBS CARE(HIGH) CLIVE MALDONADO MD Dec 06, 2024 19:39
[2024-12-06] MEDS: propranolol 10mg tablet PO SCH (21:00)
[2024-12-07 02:00] VITALS: BP 107/54; PULSE 96; RESP 14; TEMP 97.1; O2SAT 96
[2024-12-07 06:00] VITALS: BP 101/43; PULSE 61; RESP 10; TEMP 96.7; O2SAT 97
[2024-12-07 06:49] LABS: MEAN PLATELET VOLUME 9.9 FL (7.4-10.4); RED CELL DISTRIBUTION WIDTH 18.5 % (11.5-14.5)
[2024-12-07 07:52] LABS: CREATININE 1.53 MG/DL (0.40-0.90); TOTAL CARBON DIOXIDE 27.3 MMOL/L (24-32); eCRCL 34 ML/MIN; eGFR 37 ML/MIN
[2024-12-07 08:32] LABS: LYMPHOCYTES % (MANUAL) 28.0 % (21-51); MONOCYTES % (MANUAL) 10.0 % (2-12); NEUTROPHILS % (MANUAL) 62.0 % (42-75); PLATELET ESTIMATE DECREASED
[2024-12-07 08:33] LABS: ELLIPTOCYTES FEW
[2024-12-07 11:00] VITALS: BP 122/42; PULSE 54; RESP 14; TEMP 98.5; O2SAT 99
--- NOTE | 2024-12-07 11:25 | RADIOLOGY REPORT ---
Exam: CT CT ABDOMEN PELVIS History: LIVER CIRRHOSIS Comparison Study: US ULTRASOUND OF ABDOMEN on DOS: 12/04/24 Technique: Multidetector spiral CT of the abdomen and pelvis was performed from lung bases to pubic symphysis. Imaging was performed without intravenous contrast. Coronal and sagittal multiplanar reformats were obtained from the axial data set by the technologist. Radiation Dose : 1. Abdomen/Pelvis: CTDIvol 20.3 mGy, DLP 976.2 mGy*cm. Findings: Evaluation of vasculature and solid organs is limited due to lack of intravenous contrast use. Lung Bases: Small bilateral pleural effusions, right greater than left. Visualized portions of the heart and pericardium are unremarkable. Liver: The liver is small with a nodular contour. Gallbladder and Biliary Tree: The gallbladder is unremarkable No intrahepatic or extrahepatic biliary ductal dilatation. Spleen: The spleen is enlarged measuring 16.3 cm. Pancreas: The pancreas is grossly unremarkable. Adrenal Glands: Unremarkable Kidneys: Kidneys are unremarkable without calculi or hydronephrosis. GI tract: The stomach is grossly normal in appearance. No evidence of small bowel wall thickening or abnormal dilatation to suggest bowel obstruction. The colon is unremarkable. The appendix is not visualized, however no inflammatory changes in the right lower quadrant to suggest acute appendicitis. Peritoneum/mesentery/retroperitoneum. No evidence of free intraperitoneal air. Mild abdominopelvic ascites. Mesenteric edema. No evidence of suspicious lymphadenopathy. Abdominal Wall: Unremarkable. Vasculature: The visualized abdominal aorta is normal in size and caliber. Evaluation of abdominal and pelvic vessels is limited due to lack of intravenous contrast. Urinary Bladder: Grossly unremarkable for degree of distention. Pelvic Organs: Unremarkable Musculoskeletal: No aggressive focal bony lesions, acute fractures or dislocation. Soft tissues: There subcutaneous edema. IMPRESSION: 1. Small bilateral pleural effusions, right greater than left. 2. Cirrhosis with sequelae of portal hypertension including splenomegaly and mild abdominopelvic ascites. 3. Anasarca.
--- NOTE | 2024-12-07 11:30 | PROGRESS NOTE- Residence ---
Progress Note - Resident Providers to CC Resident Creating Document: MARYJO ARMSTRONG RES ~ Antibiotic Timeout Antibiotic Ordered?: Yes Subjective Patient was seen and examined at bedside.Patient reports mild abdominal discomfort. Patient reports that she did not pass stool today. No acute overnight events noted. Objective Vital Signs Date Time Temp Pulse Resp B/P (MAP) Pulse Ox O2 Delivery O2 Flow Rate FiO2 12/07/24 08:00 Room Air 0.0 12/07/24 06:00 57 12/07/24 02:00 97.1 14 107/54 (71 96 Result Diagram: 12/07/24 0619 12/07/24 0613 Awake , alert and oriented to time,place, person,not in distress, chronically ill-appearing, tremor of hands. HEENT: Atraumatic, normocephalic, PERRLA, EOMI, anicteric sclera ; pink conjunctiva, moist mucos membranes Neck: Trachea midline. Supple, normal range of motion, no JVD, no lymphadenopathy Chest and Respiratory: Equal breath sounds bilaterally, no tachypnea, wheezing, ronchi,rubs .Chest wall is symmetric and without deformity. Cardiac: S1, S2 heard,Regular rate and rhythm, no murmurs heard. Abdomen: Soft, mild tenderness, No guarding or rigidity, Motta's sign negative. normal bowel sounds x4 quadrant, no hepatosplenomegaly MSK: Range of motion of all extremities are normal. There is no joint pain or joint swelling or joint erythema. There is no muscle pain or tenderness or swelling. Extremities: warm, well-perfused, No cyanosis, clubbing, 2+ pulses felt Neurological: Speech is clear, alert, and oriented x 4. No sensory or motor deficits. Cranial nerves II-XII intact. 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 EGD in this hospital revealed minimal esophageal varices. -Patient is currently on liver transplant list. -Follow up with medical orderly outpatient. -Beta remberto therapy is not recommended in view of low blood pressure. -H&H are stable after 1 unit of PRBC transfusion. -transfuse PRBC if hemoglobin level is less than 7 -Increase dose of lactulose to aim for 2-3 bowel movements per day until the mental states are changes. -Monitor mental status and ammonia levels. -repeat ammonia levels -continue on rifaximin -continue IV Protonix -EGD showed: grade 1 esophageal varices gastritis awaiting pathology results Pancytopenia Neutropenia Multiple mechanical falls Possible aspiration pneumonia History of substance use disorder Congestive heart failure, likely not in exacerbation PTSD -plan per hospitalist team recommendation. Code status: Full code DVT prophylaxis : SCDs GI prophylaxis: Protonix Line/tube: PIV Disposition: GI is currently signing off on the patient. Please re-consult if any further complications arise. Follow up in the GI office Be Armstrong MD Internal Medicine Resident, PGY 1 Date of Service: Dec 07, 2024 Billing Provider: SAIMA BRIGHT MD, SUNIL KUMAR, RES Dec 07, 2024 11:30 SAIMA BRIGHT MD Dec 07, 2024 12:01
[2024-12-07 15:49] VITALS: BP 109/39; PULSE 51; RESP 16; TEMP 98.5; O2SAT 98
[2024-12-07] MEDS ORDERED: MIDO2.5T PO (16:48)
--- NOTE | 2024-12-09 08:56 | DISCHARGE SUMMARY ---
Discharge Summary Providers to CC ~ Discharge Summary Admission Diagnosis: LIVER FAILURE, GI BLEED Hospital Course DATE OF ADMISSION: dec 04, 2024 DATE OF DISCHARGE:dec 07, 2024 CBC testing done on December 07, 2024 WBC 0.8, hemoglobin 7.9 hematocrit 24.5 platelet count 32. Sed rate 24. Serum chemistry done on December 07, 2024 sodium 143 potassium 5.9 creatinine 1.53 GFR 37 total bilirubin 1.4 AST 40 alkaline phosphatase 113. Ammonia 54, procalcitonin 0.06. Blood culture showed no growth after five days Patient had abdomen and pelvis CT scan, echocardiogram, x-ray chest, vascular ultrasound, abdominal ultrasound done during hospitalization. Please see the details in electronic health record system. 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 Mild ascites Upper GI bleed secondary to grade 1 esophageal varices Gastritis Possible spontaneous bacterial peritonitis ruled out Severe symptomatic anemia Pancytopenia Neutropenia Multiple mechanical falls Possible aspiration pneumonia History of substance use disorder Congestive heart failure, likely not in exacerbation PTSD Operations\\Procedures: EGD showed esophageal varices and gastritis Consultants: GI specialist Dr BRIGHT,SAIMA Armenta MD Complications: None Condition on DC: Stable New Medications: Midodrine Hcl* (Proamatine*) 2.5 Mg Tablet 5 MG PO Q8H@0800,1200,1600 for 30 Days, #90 TAB Continued Medications: Buprenorphine HCl/Naloxone HCl (Suboxone 12 mg-3 mg Sl Film) 12 Mg-3 Mg Film 1 STRIP SL DAILY for 7 Days, #7 STRIP 0 Refills Escitalopram Oxalate (Lexapro) 10 Mg Tablet 1 TAB PO DAILY for 30 Days, #30 TAB 0 Refills Folic Acid* (Folic Acid*) 0.4 Mg Tablet 1 TAB PO DAILY for 30 Days, #30 TAB Furosemide (Lasix) 20 Mg Tablet 1 TAB PO DAILY for 30 Days, #30 TAB 0 Refills Levothyroxine Sodium (Synthroid) 88 Mcg Tablet 1 TAB PO DAILY for 30 Days, #30 TAB 0 Refills Multivitamin (Multi Vitamin Daily) 1 Each Tablet 1 TAB PO DAILY for 30 Days, #30 TAB 0 Refills Rifaximin (Xifaxan) 550 Mg Tablet 1 TAB PO BID, TAB 0 Refills Spironolactone (Spironolactone) 25 Mg Tablet 1 TAB PO DAILY for 30 Days, #30 TAB 0 Refills Discharge Summary: As per admitting provider's history and physical note" The patient is a 44-year- old female with past medical history of end-stage liver disease on liver transplant list, hypertension, congestive heart failure, history of polysubstance use, was transferred from [facility] for the management of GI bleed. The patient is encephalopathic and has waxing and waning mentation. History is thus limited. Patient recently was treated for GI bleed with banding at [facility]. She now comes with dyspnea and lightheadedness. She has also found blood in her stool. Unsure about hematemesis. She also fell multiple times and found herself confused. She has generalized body aches. Patient reported compliance with all of her medications. Patient also complains of abdominal pain. She has ascites and undergoes paracentesis periodically. 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 Platelets 42546. INR 1.5. Albumin 1.9. Ammonia 112. HB at the other hospital was 5.9. Patient received 2 units of PRBC at the other hospital. Current hemoglobin 7.8. Patient recently underwent variceal banding at [facility]. GI on-call, Dr. Rosales consulted. GI consultation done and reviewed patient was on pantoprazole drip, octreotide drip, lactulose t.i.d. to titrate 3-4 bowel movements per day. will Continue rifaximin Patient is currently on liver transplant list , will follow up with supervisor personnel clerks outpatient. EGD done which showed signs of esophageal varices and gastritis. Dr. Blake following the patient. Continue to monitor hemoglobin and hematocrit. Pancytopenia Neutropenia WBC 0.9, HB 7.8, platelets 09420. Currently not febrile. Although, patient reported few subjective fevers over the past few weeks. No clinical signs of spontaneous bacterial peritonitis , has ascites Patient clinically has ascites. Follow up with [facility] abdomen. stopped IV zosyn, continue rifaximin Patient is afebrile normal procalcitonin, blood cultures so far unremarkable Multiple mechanical falls CT C-spine showed no acute fractures. CT head showed no acute intracranial abnormalities. X-ray right foot showed no acute fractures. X-ray lumbar spine showed no acute abnormality. Patient complains of generalized body aches. creatinine kinase 38 normal Acute hypoxemic respiratory failure Possible aspiration pneumonia X-ray shows right worse than left interstitial opacities. Started the patient on IV ceftriaxone and azithromycin. History of substance use disorder Currently sober. Congestive heart failure, likely not in exacerbation will follow up with the echocardiogram. ProBNP in 500s. PTSD Continue home medications after medication reconciliation is done. she has been afebrile and getting discharged home in stable condition. Patient is seen and examined on the day of discharge. All labs, diagnostic workup and discharge plan discussed with patient and family members in detail before her discharge. All questions and queries answered to the best of my professional medical knowledge. I heard patient's concerns and address appropriately. Patient was cleared by Physical therapy team for home discharge . distribution operations manager involved in patient's discharge plan. Discharge instructions provided to the patient. Patient is currently on liver transplant list , will follow up with supervisor personnel clerks outpatient. Follow-up with Dr. Rosales , GI specialist in outpatient setting and contact her office . Continue to monitor blood counts, renal function and liver function closely. Please provide fall precautions document. Read side effects of all your medications specially Suboxone and discussed with PCP. Further management of rest of the medical issues per PCP in outpatient setting. Adjustment of blood pressure medication done during hospital stay. Maintain blood pressure and heart rate log book for 2-3 weeks an d follow-up with the primary care physician for blood pressure issues. General-patient not in any acute distress, alert awake chronically ill- appearing HEENT-atraumatic normocephalic, neck supple without elevated JVD, no thyromegaly or carotid bruit. No lymphadenopathy bilaterally. Eyes-no icterus or pallor seen in eyes Chest-clear to auscultation bilaterally, breathing nonlabored no tachypnea, no wheezing, no crepitation, no crackles. Heart-S1-S2 normal, regular heart rate no murmur Abdomen bowel sounds positive on auscultation, soft appear distended , signs of subjective tenderness present over abdomen on palpation, no signs of acute peritonitis, no guarding, no rigidity Skin no active skin rash Neurology-grossly intact, nonfocal alert awake oriented Extremity- no pedal edema able to move all 4 extremities Psychiatry - patient is not confused or agitated cooperated during physical examination *Problems/Diagnosis: (1) Gastrointestinal bleed Status: Acute Total Time Spent on D/C: > 30 Minutes Date of Service: Dec 07, 2024 Billing Provider: CLIVE MALDONADO MD Common Visit Codes: 65822-AKU/OBS DISCH DAY >30min CLIVE MALDONADO MD Dec 09, 2024 08:53
== END 2024-12-07 20:45 | disposition home or self-care (01) | DRG 280 ==
LOC: ER 01:12 → ED HOLD 05:40 → EDBEDREQ 05:56 → PCU 3S 15:20
PROVIDERS: ADMIT Internal Medicine Critical Care Medicine; ATTEND Internal Medicine
PROC: 30233R1 Transfusion of Nonautologous Platelets into Peripheral Vein, Percutaneous Approach (ICD-10-PCS; 2024-12-04)
PROC: 0DB68ZX Excision of Stomach, Via Natural or Artificial Opening Endoscopic, Diagnostic (ICD-10-PCS; principal; 2024-12-05)
DX: K70.31 Alcoholic cirrhosis of liver with ascites (principal); K70.9 Alcoholic liver disease, unspecified; J96.01 Acute respiratory failure with hypoxia; J69.0 Pneumonitis due to inhalation of food and vomit; D61.818 Other pancytopenia; I85.11 Secondary esophageal varices with bleeding; K72.10 Chronic hepatic failure without coma; N17.9 Acute kidney failure, unspecified; I11.0 Hypertensive heart disease with heart failure; I50.9 Heart failure, unspecified; D72.819 Decreased white blood cell count, unspecified; F10.10 Alcohol abuse, uncomplicated; I95.9 Hypotension, unspecified; F43.10 Post-traumatic stress disorder, unspecified; K29.70 Gastritis, unspecified, without bleeding; K76.82 Hepatic encephalopathy
CPT/HCPCS: 36415; 36430; 43239; 71045; 74176; 76700; 80053; 81001; 82140; 82248; 82550; 82948; 83540; 83550; 83605; 83690; 83735; 83880; 84145; 84484; 85007; 85025; 85610; 85651; 85730; 86885; 86900; 86901; 87040; 87081; 92508; 92616; 93005; 93306; 93971; 96365; 97162; 97530; 99152; 99285; A4620; A6258; G0378; J0612; J2250; J2270; J2354; J2405; J2470; J2543; J3010; J3373; J7030; J7040; J7050; J7120; P9035; Q0163